=== PATIENT | male | born 1970 | race Caucasian/White ===

== ENCOUNTER → 2017-03-15 | Day surgery (SDC) | payer OTHER ==
[~2017-03-15] VITALS: Ht 185.4 cm; Wt 108.9 kg
[~2017-03-15] MED LIST: FISH OIL500 MG PO; HYDROCODON-ACETAMINO PO; LIPITOR20 M2 PO; LISINOPRIL20 MG PO; LISINOPRIL40 M1 PO; MULTIVITAMIN1 TAB PO; SIMVASTATIN40 MG PO; UROCIT-K15 ME1 PO
--- NOTE | 2017-03-16 17:07 | RADIOLOGY REPORT ---
EXAMINATION: XR ABDOMEN C-arm fluoroscopy assistance. CLINICAL INDICATION: Left-sided ureteroscopy, retrograde ureterogram and stent insertion in the operating room. COMPARISON: None TECHNIQUE: 11 spot radiographs were obtained at the time of the procedure. Fluoroscopy time: 1.7 minutes. FINDINGS: Multiple spot radiographs were obtained at the time of the procedure. Full procedural detail will be dictated by Dr. Moreno. IMPRESSION: Multiple spot radiographs were obtained at the time of left-sided ureteroscopy, retrograde ureterogram and stent insertion. Full procedural detail will be dictated by Dr. Moreno.
--- NOTE | 2017-03-18 13:39 | Operative Report ---
Operative/Inv Procedure Report Surgery Date: 03/15/17 Name of Procedure: cystoscopy: left stent exchange: left uretroscopy with laser standby. left retrograde pyelogram. Pre-Operative Diagnosis: left ureter stricture with stone.s Post-Operative Diagnosis: same but no stone seen Estimated Blood Loss: roshan Surgeon/Mortgage Closer: TRISH WRIGHT MD Anesthesia: laryngeal mask airway Specimens: old left stent Complications: none Operative/Procedure Note Note: The patient was taken to the operating room and placed on the OR table in supine position. Timeout was performed, with the patient awake, in order to confirm correct identity, procedure, laterality, and other pertinent stephie-operative information. After adequate anesthesia and antibiotics, the patient was then placed in lithotomy stirrups, draped and prepped in the usual surgical fashion. The Holmium Yag Laser was confirmed in the room on standby. A 22 Yi cystoscope sheath with 30 angle lens was inserted into the bladder without difficulty. Upon entering the bladder, the bladder was noted to be free of tumor , and free of stone. Both orifices were in their orthotopic position, with clear efflux of urine from the right. A stent protruded from the left ureter orifice. the alligator forcep was then used to grasp the stent. The cystoscope along with the entire stent was removed without difficulty. The cystoscope was then reinserted into the bladder. The left ureteral orifice was intubated with an 8fr cone-tip catheter, and a retrograde pyelogram with fluoroscopy was performed. a stricture was noted in the mid ureter with delayed left proximal ureter drainage of contrast material. The cone-tipped catheter was removed, followed by insertion of a 0.035 Glidewire , which was advanced into the left renal pelvis without difficulty. Placement was confirmed with fluoroscopy. Leaving the Glidewire in place, the flexible ureteroscope was inserted by rail roading it over the gluidewire, and followed the wire into the bladder, up the ureter, and into the left renal pelvis without difficulty. Pyeloscopy/calyxoscopy of the upper, middle, and lower poles reveal no evidence of tumor, no evidence of stones. Additionally, NO other stones, nor any tumor was visualized in the renal pelvis. At this point the standby laser was disengaged. The entire length of the ureter was also visualized carefully on the way out, and the same findings (no stones or tumor) was confirmed. The bladder was then drained after the ureteroscope was removed. The 22 Yi cystoscope, with 30 lens, was then reinserted into the bladder without difficulty. The left orifice was intubated with a 0.035 Glidewire, which advanced into the left renal pelvis without difficulty. over this Glidewire, a 7 Yi by 22 Bard stent was inserted, following the Glidewire into left renal pelvis. With the stent in proper placement, the Glidewire was removed. Fluoroscopy confirms the new left stent to be in proper place. The patient tolerated the procedure well was then taken to the recovery room in satisfactory condition. The pt is to have f/u in 6 months. Findings: left mid-ureter stricture: delayed drainage from retrograde requiring reinsertion of new stent. Discharge Disposition: PACU Additional Comments: f/u 6 months. CC: TRISH WRIGHT MD
== END ==
LOC: STS 01:22
DX: N13.5 Crossing vessel and stricture of ureter without hydronephrosis (principal); I10 Essential (primary) hypertension
CPT/HCPCS: 74000; C2617; J2250

== ENCOUNTER → 2017-11-15 | Day surgery (SDC) | payer OTHER ==
[~2017-11-15] VITALS: Ht 185.4 cm; Wt 108.9 kg
[~2017-11-15] MED LIST changes: +LIPITOR40 M1 PO; +LISINOPRIL20 M1 PO
--- NOTE | 2017-11-23 07:16 | Operative Report ---
Operative/Inv Procedure Report Surgery Date: 11/15/17 Name of Procedure: left renal ESWL, cystoscopy with left stent exchange. Pre-Operative Diagnosis: left renal stone. left ureter stricture. left stent-migrated Post-Operative Diagnosis: same Estimated Blood Loss: scant Surgeon/Procedural Nurse: Hardy Moreno MD Anesthesia: moderate sedation Specimens: old left stent Complications: none Operative Indication: left renal colic Operative/Procedure Note Note: The patient was taken to the operating room and placed on the ESWL table in supine position. Timeout was performed, with the patient awake, in order to confirm correct patients identity, procedure, laterality, anesthesia, and other pertinent perioperative information. After adequate anesthesia and antibiotics, the patient was then positioned so that the LEFT Flank was overlying the ESWL table's cut-out, above the concussion dome of the shockwave generator. Fluroscopy, as well as renal US, was used to locate the stone, and LEFT stent. Using fluoroscopy with AP, and oblique views, the position of the left renal stone was confirmed and optimized in the c-arm crosshairs. The stone was appoximately 6mm in size, and was visible on fluroscopy. Renal ultrasound was also performed on the left side, confirming the presence of the left stone, and no hydronephrosis, with normal parenchyma, and no solid tumor. Flurosocpy was used in an AP and oblique views to maximize the position of the stone for ESWL. After optimized positioning, ESWL was initiated at low power levels. After noting the patient's tolerance to the shockwaves, the power was maximized. The renal stone was noted to bounce/move with each shockwave with real-time renal US visualization. Toward the end of the procedure, the composition of the left stones had changed significantly, indicating the breaking of the left renal stone. A total of 2500 shockwaves were delivered to the stone. The patient was then placed in a frog-leg position, draped and prepped in the usual surgical fashion. A well lubricated, 22 Lithuanian cystoscope sheath with 30 angle lens was inserted without difficulty. On entering the bladder the bladder was noted to be free of tumor, and free of stone. Both ureteral orifices were in their ortotopic positions. The left stent was seen in proper place protruding through the left ureter orifice. Using the alligator forcep, under direct visualization, the left stent was grasped. The cystoscope along with entire left stent was then gently removed without difficulty. The cystoscope was then reinserted into the bladder without difficulty. The left orifice was intubated with a 0.035 Glidewire, which was advanced with fluoroscopic visualization into the left renal pelvis. A new 6 x 22 silicone stent was then railroaded over the wire without difficulty. With the proximal coil in the renal pelvis, and the distal coil in the bladder, the Glidewire was removed, and the stent remained in proper place. All sponge, needle, and instrument count were correct at the end of the case. The patient the tolerated both the left cysto/stent removal, and left ESWL procedures well. The patient was awakened, then taken to recovery in satisfactory condition via stretcher. The pt. was dischared with pain meds, diet orders, and intructions to catch fragments with straining the urine. The patient was given requisition to have follow-up renal ultrasound and KUB in 2-4 weeks, prior to follow-up visit in my office subsequent stent exchange in 6 months. Discharge Disposition: Same Day Admissions CC: Josh MORA,Hardy
== END ==
LOC: STS 04:37
DX: N20.0 Calculus of kidney (principal); Z87.442 Personal history of urinary calculi; N13.5 Crossing vessel and stricture of ureter without hydronephrosis; I10 Essential (primary) hypertension; E11.9 Type 2 diabetes mellitus without complications
CPT/HCPCS: C2617; J2250

== ENCOUNTER → 2018-05-18 | Day surgery (SDC) | payer OTHER ==
--- NOTE | 2018-05-18 15:46 | Operative Report ---
Operative/Inv Procedure Report Surgery Date: 05/18/18 Name of Procedure: cystoscopy: bilateral retrograde pyelogram: left stent exchange: fluoroscopy Pre-Operative Diagnosis: left ureter stricture Post-Operative Diagnosis: same Estimated Blood Loss: scant Surgeon/Stick Inserter: Hardy Moreno MD Anesthesia: laryngeal mask airway Implants: none Specimens: old left stent Complications: none Operative/Procedure Note Note: The patient was taken to the operating room and placed on the OR table in supine position. Timeout was performed in order to confirm the correct patient, procedure, and other pertienent operative information. After adequate anesthesia and antibiotics, the patient was then placed lithotomy stirrups, draped and prepped in the usual surgical fashion. The 22 romanian cystoscope with the 30 degree angle lens was inserted into the bladder without difficulty. Uretral mucosa was noted to be coapting well. The bladder appears normal without tumor/stone. Bilateral clear efflux was also noted. The cystoscope was removed after draining the bladder. Subsequently, the Botox Injection Resectoscope with 30 angle lens was inserted without difficulty. Under direct visualization, the 18-gauge cystoscopic needle was extended. Using a spiral injection patern, avoiding the trigone and area around the ureteral orifices, a total of 300 units of Botox, in small 10unit aliquots was injected into the bladder muscle/detrusor (including the dome, posterior, right and left gant of the bladder) forming a submucosal blister with each injection of botox. The bladder was then drained and the Botox cystoscope was removed without difficulty. The patient tolerated the procedure well, and was then taken to recovery room in satisfactory condition. She was discharged home with pain medication and antibiotics, and to follow up in 2 weeks' time. Discharge Disposition: PACU CC: Hardy Moreno MD
--- NOTE | 2018-05-18 16:31 | RADIOLOGY REPORT ---
EXAMINATION: XR URETEROSCOPY OR CLINICAL INFORMATION: 47-year-old male undergoing left stent placement. COMPARISON: CT abdomen, 01/02/2018. TECHNIQUE: Intraoperative fluoroscopic imaging of the abdomen. Dose: 46.8 mGy; 1.52 mGym2 Fluoroscopy time: 1.7 minutes. Number of saved images: 5. FINDINGS: Please refer to the operative report. Retrograde ureterography was performed and the saved images show no evidence of hydronephrosis. IMPRESSION: Fluoroscopic imaging equipment was provided to the operating room.
--- NOTE | 2018-05-25 14:42 | Operative Report ---
Operative/Inv Procedure Report Surgery Date: 05/18/18 Name of Procedure: Cystoscopy: left stent exchange: laser standby: retrograde pyelogram. Fluoroscopy. Pre-Operative Diagnosis: left ureter stricture: old stent Post-Operative Diagnosis: same Estimated Blood Loss: scant Surgeon/Grouter Helper: Hardy Moreno MD Anesthesia: laryngeal mask airway Implants: 7x22 cook black rubber stent Specimens: old stent Complications: none Operative/Procedure Note Note: The patient was taken to the operating room and placed on the OR table in supine position. Time-out was performed, with the patient awake, to confirm correct identity, laterality, antibiotics, anesthesia, planned procedure, and other pertient stephie-operative information. After adequate anesthesia and antibiotics, the patient was placed in lithotomy stirrups, draped and prepped in usual surgical fashion. A 22 Danish cystoscope sheath with a 30 angle lens was inserted into the urethra without difficulty. Upon entering the bladder, the bladder was noted to be free of tumor, stone, and foreign body. Both orifices were in their orthotopic position. The left ureter had a stent in place, which was grasped with an alligator forcep. The cystoscope along with entire stent was then removed without difficulty. The 22 Danish cystoscope was then reinserted into the bladder without difficulty. An tiger tail ureteral stent was inserted into the cystoscope, and into the left ureter orifice. Retrograde pyelogram was performed, with the findings of a filling defect consistent with narrow stricture at the mid-ureter. The cone- tipped catheter was removed, followed by insertion of a 0.035 Gluidewire. The gluidewire was advanced into the left renal pelvis, under fluoroscopic visualization without difficulty. Over the gluidewire, a 6 x 22 double-J stent (Cook blacl rubber) was inserted under direct visualization. With fluoroscopic visualization, and rail-roaded over the wire, the Cook stent was advanced into left renal pelvis without difficulty. With the stent in proper place, the gluidewire was removed, and the stent remained in proper position draining clear urine. The bladder was then drained, and the cystoscope was removed without difficulty. All sponge needle and instrument count were correct at the case. The patient was then taken to the recovery room in satisfactory condition. Discharged: the patient will receive prescriptions for pain medication, and antibiotics, and instructions for follow-up visit in 2 weeks. Discharge Disposition: PACU Additional Comments: f/u 6 months for stent exchange CC: Hardy Moreno MD
== END ==
LOC: STS 02:59
DX: N13.5 Crossing vessel and stricture of ureter without hydronephrosis (principal); Z87.442 Personal history of urinary calculi; I10 Essential (primary) hypertension
CPT/HCPCS: 76000; J1885; J2250